=== PATIENT | male | born 1965 | race Caucasian/White ===

== ENCOUNTER → 2017-07-09 | Outpatient (CLI) | payer OTHER ==
[~2017-07-09] MED LIST: ABILIFY15 MG PO; NEURONTIN300 MG PO; ZOLOFT100 MG PO
== END | disposition home or self-care (01) ==
LOC: AMB 12:45 → EDBD 13:00
PROC: B01B0ZZ Fluoroscopy of Spinal Cord using High Osmolar Contrast (ICD-10-PCS; principal; 2017-07-09)
DX: M54.42 Lumbago with sciatica, left side (principal)
CPT/HCPCS: 62304; 72132